=== PATIENT | male | born 1940 | race Caucasian/White ===

== ENCOUNTER 2021-06-15 19:58 | Observation (INO) | payer MEDICARE ==
--- NOTE | 2021-06-15 20:33 | EDM.PDOC ---
ED HPI GENERAL MEDICAL PROBLEM - General Chief Complaint: Head Injury Stated Complaint: FALL Time Seen by Provider: 06/15/21 20:20 Source of Information: Reports: Patient, RN Notes Reviewed History Limitations: Reports: No Limitations - History of Present Illness INITIAL COMMENTS - FREE TEXT/NARRATIVE: This patient presents to the emergency department for evaluation following a fall. He states he slipped in his kitchen and fell backwards landing on his posterior scalp about 3 hours prior to admission. He is complaining of some head pain and some right jaw pain. He also states he feels as though the jaw is dislocated. His pain increases significantly when he bites down. He states he had no loss of consciousness and is able to recount the details of his injury. He denies other injuries or concerns. - Related Data Allergies Allergy/AdvReac Type Severity Reaction Status Date / Time Sulfa (Sulfonamide AdvReac Diarrhea Verified 05/23/19 14:35 Antibiotics) Home Meds: Home Meds Aspirin [Aury Chewable Aspirin] 81 mg PO DAILY 05/15/14 [History] Clopidogrel Bisulfate [Clopidogrel] 75 mg PO DAILY 05/15/14 [History] Fluticasone Propion/Salmeterol [Advair 100-50 Diskus] 1 puff INH BID 05/15/14 [History] Lisinopril 5 mg PO DAILY 05/15/14 [History] Simvastatin 40 mg PO DAILY 05/15/14 [History] Tamsulosin HCl 0.4 mg PO DAILY 05/15/14 [History] Nitroglycerin 0.4 mg PO ASDIRECTED PRN 05/23/19 [History] [place]-3/DHA/Epa/Fish Oil [Fish Oil 1,000 mg Softgel] 1,000 mg PO DAILY 05/23/19 [History] Pantoprazole Sodium 40 mg PO DAILY 05/23/19 [History] ED ROS GENERAL - Review of Systems Review Of Systems: Comprehensive ROS is negative, except as noted in HPI. ED EXAM, HEAD INJURY - Physical Exam Exam: See Below Exam Limited By: No Limitations General Appearance: Alert, No Apparent Distress Head: Atraumatic, Other (TMJ on the right is tender with palpation, he does have full range of motion; joint feels intact.) Nexus Criteria: No: Posterior, Midline Cervical Tenderness, Evidence of Intoxication, Altered Level of Consciousness, Focal Neurological Deficit, Painful Distraction Injuries Eyes: Bilateral Eye: Normal Inspection, PERRL Ears: Normal External Exam Nose: Normal Inspection Throat/Mouth: Normal Inspection, Normal Teeth, Normal Oropharynx, No Airway Compromise Neck: Non-Tender, Full Range of Motion, Normal Inspection Respiratory: No Respiratory Distress, No Accessory Muscle Use Cardiovascular: Regular Rate, Rhythm Extremities: Normal Inspection, Normal Range of Motion Neurologic: No Motor/Sensory Deficits, Alert, Normal Mood/Affect, Oriented x 3 Skin: Normal Color, Warm/Dry, Ecchymosis (2 cm bruise to) - June Coma Score Best Eye Response ([place]): (4) Open Spontaneously Best Verbal Response ([place]): (5) Oriented Best Motor Response ([place]): (6) Obeys Commands Course - Orders/Labs/Meds Orders: Active Orders 24 hr Category Date Time Status Head wo Cont [CT] Stat Exams 06/15/21 20:23 Ordered Max Facial Sinus wo Cont [CT] Stat Exams 06/15/21 20:23 Ordered - Re-Assessments/Exams Free Text/Narrative Re-Assessment/Exam: 06/15/21 21:49 This patient presents to the emergency department for evaluation of jaw pain following a fall in his home. CT scan of his jaw was negative for acute findings and there is no malocclusion noted. He also had a head CT which was significant for small subdural hematoma along the anterior sagittal falx. There is no mass-effect or midline shift noted. I contacted Dr. Rader who is a neurosurgeon at [facility] to discuss these findings. He suggested that the location of this bleed and the size are such that it is on very unlikely to get any bigger. He suggested we admit the patient on observation status with a repeat CT scan in 24 hours. His Plavix and aspirin will be held. If his head CT is unchanged in 24 hours he can be discharged to home with instructions to follow-up with his primary care provider in 2 weeks for a another CT scan. At that time if the bleed is completely resolved he would be able to restart his Plavix and aspirin. If it is not, further waiting for the bleed to resolve would be required. I did discuss this plan with the patient and his son who are agreeable. The patient will be admitted to the acute care area on observation status. He will have frequent neuro checks during the night and through the day tomorrow with a repeat CT scan approximately 24 hours after the original injury. The patient was stable at the time he was transferred to the inpatient unit. Departure - Departure Time of Disposition: 22:00 Disposition: [facility] Condition: Good Clinical Impression: Subdural hematoma, Jaw pain - Discharge Information Forms: ED Department Discharge - My Orders Last 24 Hours: My Active Orders 06/15/21 20:23 Head wo Cont [CT] Stat Max Facial Sinus wo Cont [CT] Stat - Assessment/Plan Last 24 Hours: My Active Orders 06/15/21 20:23 Head wo Cont [CT] Stat Max Facial Sinus wo Cont [CT] Stat
[2021-06-15] MEDS ORDERED: Tamsulosin 0.4 MG Cap.ER PO ONE (22:20)
[2021-06-15] MEDS ORDERED: Nitroglycerin 0.4 MG Tab.SL SL PRN (22:22)
--- NOTE | 2021-06-15 22:28 | PCM.HP.2 ---
H&P History of Present Illness - General Date of Service: 06/15/21 Admit Problem/Dx: Admission Diagnosis/Problem Admission Diagnosis/Problem Subdural hematoma Source of Information: Patient, RN Notes Reviewed History Limitations: Reports: No Limitations - History of Present Illness Onset of Symptoms: Reports: Today, Sudden - Related Data Allergies/Adverse Reactions: Allergies Allergy/AdvReac Type Severity Reaction Status Date / Time Sulfa (Sulfonamide AdvReac Diarrhea Verified 06/15/21 21:49 Antibiotics) Home Medications: Home Meds Aspirin [Aury Chewable Aspirin] 81 mg PO DAILY 05/15/14 [History] Clopidogrel Bisulfate [Clopidogrel] 75 mg PO DAILY 05/15/14 [History] Fluticasone Propion/Salmeterol [Advair 100-50 Diskus] 1 puff INH BID 05/15/14 [History] Simvastatin 40 mg PO DAILY 05/15/14 [History] Tamsulosin HCl 0.4 mg PO DAILY 05/15/14 [History] Nitroglycerin 0.4 mg PO ASDIRECTED PRN 05/23/19 [History] [place]-3/DHA/Epa/Fish Oil [Fish Oil 1,000 mg Softgel] 1,000 mg PO DAILY 05/23/19 [History] Pantoprazole Sodium 40 mg PO DAILY 05/23/19 [History] Losartan [Cozaar] 25 mg PO DAILY 06/15/21 [History] Past Medical History - Infectious Disease History Infectious Disease History: Reports: Chicken Pox, Influenza, Measles, Mumps Social & Family History - Tobacco Use Tobacco Use Status *Q: Unknown Ever Used Tobacco H&P Review of Systems - Review of Systems: Review Of Systems: Comprehensive ROS is negative, except as noted in HPI. Exam - Exam Exam: See Below - Vital Signs Vital Signs: Last Vital Signs Temp 36.8 C 06/15/21 20:01 Pulse 59 L 06/15/21 20:01 Resp 18 06/15/21 20:01 BP 146/91 H 06/15/21 20:01 Pulse Ox 98 06/15/21 20:01 Weight: 145.15 kg - Exam General: Alert, Oriented HEENT: PERRLA, Conjunctiva Clear, EOMI, Hearing Intact, Mucosa Moist & [place], Nares Patent, Normal Nasal Septum, Posterior Pharynx Clear, Pupils Equal, Pupils Reactive Neck: Supple Lungs: Clear to Auscultation, Normal Respiratory Effort Cardiovascular: Regular Rate, Regular Rhythm Extremities: Normal Inspection Skin: Warm, Dry Neuro Extensive - Mental Status: Alert, Oriented x3, Normal Mood/Affect, Normal Cognition, Memory Intact Neuro Extensive - Motor, Sensory, Reflexes: Normal Gait. No: Motor/Sensory Deficits Psychiatric: Alert, Normal Affect, Normal Mood Sepsis Event Note - Evaluation Sepsis Screening Result: No Definite Risk - Focused Exam Vital Signs: Vital Signs Temp Pulse Resp BP Pulse Ox 06/15/21 20:01 36.8 C 59 L 18 146/91 H 98 - Problem List (1) Subdural hematoma SNOMED Code(s): 377628892 ICD Code: S06.5X9A - TRAUM SUBDR HEM W LOC OF UNSP DURATION, INIT Status: Acute Priority: High Current Visit: Yes Problem List Initiated/Reviewed/Updated: Yes Orders Last 24hrs: Active Orders 24 hr Category Date Time Status Patient Status Manage Transfer [TRANSFER] Routine ADT 06/15/21 22:12 Active RT Post Treatment Assessment [RC] Click to Edit Care 06/15/21 22:21 Active Head wo Cont [CT] Stat Exams 06/15/21 20:23 Taken Max Facial Sinus wo Cont [CT] Stat Exams 06/15/21 20:23 Taken Fluticasone Propionate [Flovent HFA 110 MCG] Med 06/16/21 08:00 Ordered 1 gm INH BID Losartan [Cozaar] Med 06/16/21 08:00 Ordered 25 mg PO DAILY Nitroglycerin [Nitrostat] Med 06/15/21 22:22 Ordered 0.4 mg SL Q5M PRN Pantoprazole [ProTONIX] Med 06/16/21 07:00 Ordered 40 mg PO ACBREAKFAST Simvastatin [Zocor] Med 06/16/21 20:00 Ordered 40 mg PO BEDTIME Tamsulosin [Flomax] Med 06/15/21 22:20 Once 0.4 mg PO ONETIME ONE Resuscitation Status Routine Resus Stat 06/15/21 22:13 Ordered Medication Orders Fluticasone Propionate (Fluticasone Propionate 110 Mcg/Puff 12 Gm Inhaler) 1 gm INH BID ENRIQUE Losartan Potassium (Losartan 25 Mg Tab) 25 mg PO DAILY ENRIQUE Nitroglycerin (Nitroglycerin 0.4 Mg Tab.Sl) 0.4 mg SL Q5M PRN PRN Reason: Chest Pain Pantoprazole Sodium (Pantoprazole 40 Mg Tab.Cr) 40 mg PO ACBREAKFAST ENRIQUE Simvastatin (Simvastatin 40 Mg Tab) 40 mg PO BEDTIME ENRIQUE Tamsulosin HCl (Tamsulosin 0.4 Mg Cap.Er) 0.4 mg PO ONETIME ONE Stop: 06/15/21 22:21 Assessment/Plan Comment:: Discontinue Plavix and ASA. Neuro checks every [address] 24 hours Other cares per order - Mortality Measure Prognosis:: Good
[2021-06-16] MEDS: Acetaminophen 500 MG Tab PO PRN ×2 (02:14→11:16)
[2021-06-16] MEDS ORDERED: Pantoprazole 40 MG Tab.CR PO SCH (07:00)
[2021-06-16] MEDS ORDERED: Losartan 25 MG Tab PO SCH (08:00)
--- NOTE | 2021-06-16 08:01 | CT ---
DATE OF SERVICE: 06/15/21 CLINICAL DATA: trauma UNENHANCED BRAIN CT: Multislice acquisition through the brain without IV contrast was performed. Comparison is made to a prior exam dated 09/05/07. There is diffuse cerebral atrophy. There are periventricular lucencies bilaterally consistent with small vessel ischemic change. There is blood density material adjacent to the anterior hemispheric falx anteriorly consistent with an acute subdural hematoma. No mass effect associated with this. No evidence of acute or subacute infarct. No osseous abnormalities. No fractures. IMPRESSION: Subdural hematoma adjacent to the interhemispheric falx anteriorly. No mass effect. The patient's physician was notified of the findings by telephone and by [facility] preliminary radiology report. [id number] [facility]
--- NOTE | 2021-06-16 08:06 | CT ---
DATE OF SERVICE: 06/15/21 CLINICAL DATA: trauma UNENHANCED FACIAL CT: Multislice axial acquisition was performed. Axial images and sagittal and coronal reformations are reviewed. There is mild mucosal thickening in the maxillary, ethmoid, sphenoid, and frontal sinuses consistent with chronic sinusitis. No air-fluid levels. The globes and orbital contents appear intact. No fractures. No other significant findings. [id number] [facility]
[2021-06-16] MEDS: Formoterol/Mometasone 100-5 MCG 8.8 GM Inhaler IH SCH ×2 (08:20→08:35)
[2021-06-16] MEDS ORDERED: Tamsulosin 0.4 MG Cap.ER PO SCH (10:00)
[2021-06-16 13:14] VITALS: BP 144/66; PULSE 58
--- NOTE | 2021-06-16 16:52 | PCM.DCSUM1 ---
Discharge Summary - Hospital Course Diagnosis: Stroke: No - Discharge Data Discharge Date: 06/16/21 Discharge Disposition: Home, Self-Care 01 Condition: Good - Referral to Home Health Primary Care Physician: PCP None - Discharge Diagnosis/Problem(s) (1) Subdural hematoma SNOMED Code(s): 205206085 ICD Code: S06.5X9A - TRAUM SUBDR HEM W LOC OF UNSP DURATION, INIT Status: Acute Priority: High Current Visit: Yes - Patient Instructions Diet: Usual Diet as Tolerated Driving: May Drive Today Showering/Bathing: May Shower - Discharge Plan *PRESCRIPTION DRUG MONITORING PROGRAM REVIEWED*: Not Applicable *COPY OF PRESCRIPTION DRUG MONITORING REPORT IN PATIENT LEXI: Not Applicable Home Medications: Home Meds Fluticasone Propion/Salmeterol [Advair 100-50 Diskus] 1 puff INH BID 05/15/14 [History] Simvastatin 40 mg PO DAILY 05/15/14 [History] Tamsulosin HCl 0.4 mg PO DAILY 05/15/14 [History] Nitroglycerin 0.4 mg PO ASDIRECTED PRN 05/23/19 [History] [place]-3/DHA/Epa/Fish Oil [Fish Oil 1,000 mg Softgel] 1,000 mg PO DAILY 05/23/19 [History] Pantoprazole Sodium 40 mg PO DAILY 05/23/19 [History] Losartan [Cozaar] 25 mg PO DAILY 06/15/21 [History] Forms: ED Department Discharge Referrals: PCP,None [Primary Care Provider] - - Discharge Summary/Plan Comment DC Time >30 min.: No (30) Total # of Minutes for Discharge Time: 30 - General Info Date of Service: 06/16/21 Admission Dx/Problem (Free Text: Admission Diagnosis/Problem Admission Diagnosis/Problem Subdural hematoma Functional Status: Reports: Pain Controlled, Tolerating Diet, Ambulating, Urinating - Review of Systems General: Reports: Appetite. Denies: Fever, Weakness HEENT: Reports: Glasses. Denies: Ear Pain, Eye Pain, Headaches, Post Nasal Drip, Rhinitis, Visual Changes Pulmonary: Reports: No Symptoms Cardiovascular: Reports: No Symptoms Gastrointestinal: Reports: No Symptoms Genitourinary: Reports: No Symptoms Musculoskeletal: Reports: No Symptoms Skin: Reports: No Symptoms Neurological: Reports: No Symptoms - Patient Data Vitals - Most Recent: Last Vital Signs Temp 36.4 C 06/16/21 07:34 Pulse 58 L 06/16/21 13:13 Resp 16 06/16/21 13:13 BP 144/66 H 06/16/21 13:13 Pulse Ox 96 06/16/21 13:13 Weight - Most Recent: 145.15 kg Lab Results - Last 24 hrs: Laboratory Results - last 24 hr 06/16/21 Range/Units Unknown SARS-CoV-2 RNA ([place]) Negative (NEGATIVE) Med Orders - Current: Current Medications Acetaminophen (Acetaminophen 500 Mg Tab) 1,000 mg PO Q6H PRN PRN Reason: Pain Last Admin: 06/16/21 11:16 Dose: 1,000 mg Documented by: Losartan Potassium (Losartan 25 Mg Tab) 25 mg PO DAILY [facility] Last Admin: 06/16/21 08:20 Dose: 25 mg Documented by: Mometasone Furoate/Formoterol Fumar (Formoterol/Mometasone 100-5 Mcg 8.8 Gm Inhaler) 0 puff IH BID [facility] Last Admin: 06/16/21 08:35 Dose: Not Given Documented by: Nitroglycerin (Nitroglycerin 0.4 Mg Tab.Sl) 0.4 mg SL Q5M PRN PRN Reason: Chest Pain Pantoprazole Sodium (Pantoprazole 40 Mg Tab.Cr) 40 mg PO ACBREAKFAST [facility] Last Admin: 06/16/21 06:14 Dose: 40 mg Documented by: Simvastatin (Simvastatin 40 Mg Tab) 40 mg PO BEDTIME ENRIQUE Tamsulosin HCl (Tamsulosin 0.4 Mg Cap.Er) 0.4 mg PO PCBREAKFAST [facility] Last Admin: 06/16/21 11:15 Dose: 0.4 mg Documented by: Discontinued Medications Tamsulosin HCl (Tamsulosin 0.4 Mg Cap.Er) 0.4 mg PO ONETIME ONE Stop: 06/15/21 22:21 Last Admin: 06/15/21 23:36 Dose: Not Given Documented by: - Exam General: Reports: Alert, Oriented, Cooperative HEENT: Reports: Pupils Equal, Pupils Reactive, EOMI, Mucous Membr. Moist/[place] Neck: Reports: Supple Lungs: Reports: Clear to Auscultation, Normal Respiratory Effort Cardiovascular: Reports: Regular Rate, Regular Rhythm Skin: Reports: Warm, Dry, Ecchymosis (Posterior scalp approximately 2 cm in diameter.) Neurological: Reports: No New Focal Deficit
[2021-06-16] MEDS ORDERED: Simvastatin 40 MG Tab PO SCH (20:00)
--- NOTE | 2021-06-16 22:07 | CT ---
CLINICAL DATA: Trauma. UNENHANCED BRAIN CT, 2020: Multislice axial acquisition was performed. Comparison is made to a prior exam dated 15 June 2021. A small subdural hematoma adjacent to the interhemispheric falx anteriorly is again seen. It is unchanged from the prior study. The remainder of the exam is also unchanged. No new abnormalities. Job: [id number] MTDD
== END 2021-06-16 16:50 | disposition home or self-care (01) ==
LOC: LB.ED 19:58 → LB.MS 21:45 → UNDOADMOB 21:45 → LB.MS 22:12
PROVIDERS: ADMIT Nurse Practitioner; ATTEND Nurse Practitioner
DX: S06.5X9A Traumatic subdural hemorrhage with loss of consciousness of unspecified duration, initial encounter (principal); Z20.822 Contact with and (suspected) exposure to COVID-19; Z79.82 Long term (current) use of aspirin; Z88.2 Allergy status to sulfonamides; Z79.899 Other long term (current) drug therapy; W19.XXXA Unspecified fall, initial encounter
CPT/HCPCS: 70450; 70486; 99284-25; A9270-GY; G0378; U0002

== ENCOUNTER 2022-05-15 09:26 | Emergency (ER) | payer MEDICARE ==
[2022-05-15 09:54] VITALS: BP 169/71; PULSE 75
[2022-05-15] MEDS ORDERED: Albuterol/Ipratropium 3.0-0.5 MG/3 ML Neb Soln ONE (10:56)
== END 2022-05-15 11:20 | disposition home or self-care (01) ==
LOC: LB.ED 09:26
DX: J45.901 Unspecified asthma with (acute) exacerbation (principal); Z88.2 Allergy status to sulfonamides; Z79.899 Other long term (current) drug therapy; Z20.822 Contact with and (suspected) exposure to COVID-19
CPT/HCPCS: 99282; 99284; U0002; J7620

== ENCOUNTER 2023-02-15 10:18 | Day surgery (SDC) | payer MEDICARE ==
[~2023-02-15 10:18] MED LIST: Metoclopramide 10 MG/2 ML SDV IV PRN; Sodium Chloride 0.9% 1,000 ML IV SCH
[2023-02-15 13:19] VITALS: BP 137/79; PULSE 58
== END 2023-02-15 13:45 | disposition home or self-care (01) ==
LOC: LB.SDS 10:18
PROVIDERS: ATTEND Surgery
DX: Z12.11 Encounter for screening for malignant neoplasm of colon (principal); K57.30 Diverticulosis of large intestine without perforation or abscess without bleeding; K21.9 Gastro-esophageal reflux disease without esophagitis; I25.10 Atherosclerotic heart disease of native coronary artery without angina pectoris; J45.909 Unspecified asthma, uncomplicated; M54.50 Low back pain, unspecified; G89.29 Other chronic pain; I10 Essential (primary) hypertension; M53.9 Dorsopathy, unspecified; I25.2 Old myocardial infarction; R73.09 Other abnormal glucose; G47.9 Sleep disorder, unspecified; Z86.010 Personal history of colon polyps; Z88.2 Allergy status to sulfonamides; Z79.82 Long term (current) use of aspirin; Z79.02 Long term (current) use of antithrombotics/antiplatelets; Z79.899 Other long term (current) drug therapy; Z87.891 Personal history of nicotine dependence
CPT/HCPCS: G0105; J2704; J7030

== ENCOUNTER 2023-03-20 10:28 | Emergency (ER) | payer MEDICARE ==
[2023-03-20] MEDS: Ketorolac 60 MG/2 ML SDV IM ONE (11:46)
[2023-03-20] MEDS: methylPREDNISolone Sodium Succinate 125 MG/2 ML SDV IM ONE (11:47)
[2023-03-20 11:56] VITALS: BP 137/76; PULSE 97
[2023-03-21] MEDS: methylPREDNISolone Sodium Succinate 125 MG/2 ML SDV ONE (09:25)
[2023-03-21] MEDS: Ketorolac 60 MG/2 ML SDV ONE (09:25)
== END 2023-03-20 12:53 | disposition home or self-care (01) ==
LOC: LB.ED 10:28
DX: M16.0 Bilateral primary osteoarthritis of hip (principal); I25.10 Atherosclerotic heart disease of native coronary artery without angina pectoris; E78.00 Pure hypercholesterolemia, unspecified; I10 Essential (primary) hypertension; Z88.2 Allergy status to sulfonamides; Z79.899 Other long term (current) drug therapy; Z79.82 Long term (current) use of aspirin
CPT/HCPCS: 73502-LT; 96372; 99283; J1885; J2930

== ENCOUNTER 2023-07-29 09:37 | Inpatient (IN) | payer MEDICARE ==
[2023-07-29] MEDS ORDERED: Albuterol/Ipratropium 3.0-0.5 MG/3 ML Neb Soln NEB ONE (09:51)
[2023-07-29] MEDS ORDERED: Budesonide 0.5 MG/2 ML Neb Susp NEB ONE (09:54)
[2023-07-29] MEDS ORDERED: Budesonide 0.5 MG/2 ML Neb Susp ONE (10:00)
[2023-07-29 10:43] LABS: BASOPHILS ABSOLUTE AUTO 0.06 K/uL (0.02-0.10); BASOPHILS PERCENT AUTO 0.6 % (0.0-0.5); EOSINOPHILS ABSOLUTE AUTO 0.35 K/uL (0.04-0.40); EOSINOPHILS PERCENT AUTO 3.7 % (1.0-5.0); HEMATOCRIT 41.2 % (40.0-54.0); HEMOGLOBIN 13.8 g/dL (13.0-18.0); LYMPHOCYTES ABSOLUTE AUTO 1.56 K/uL (1.50-4.00); LYMPHOCYTES PERCENT AUTO 16.4 % (20.0-40.0); MEAN CORPUSCULAR HEMOGLOBIN 27.1 pg (27.0-32.0); MEAN CORPUSCULAR HGB CONC 33.5 g/dL (31.0-35.0); MEAN CORPUSCULAR VOLUME 81 fL (76-96); MEAN PLATELET VOLUME 9.9 fL (6.0-10.0); MONOCYTES ABSOLUTE AUTO 0.55 K/uL (0.20-0.80); MONOCYTES PERCENT AUTO 5.8 % (3.0-10.0); NEUTROPHILS PERCENT AUTO 73.5 % (45.0-70.0); PLATELET COUNT,PLT 230 K/uL (150-400); RED CELL DISTRIBUTION WIDTH 15.5 % (11.0-16.0); WHITE BLOOD CELL COUNT,WBC 9.5 K/uL (4.0-11.0)
[2023-07-29] MEDS ORDERED: methylPREDNISolone Sodium Succinate 125 MG/2 ML SDV IM ONE (10:48)
[2023-07-29 10:49] LABS: PH,VENOUS 7.43 (7.31-7.41)
[2023-07-29 10:50] LABS: BASE EXCESS VENOUS -0.2 mm/L (-2-3); BICARBONATE,VENOUS 24.1 mmol/L (23.0-28.0); PCO2 VENOUS 36.3 mm/Hg (41-51)
[2023-07-29] MEDS ORDERED: methylPREDNISolone Sodium Succinate 125 MG/2 ML SDV ONE ×2 (10:51→10:55)
[2023-07-29 11:17] LABS: A/G RATIO 0.9 (0.8-2.0); ALBUMIN 3.3 g/dL (3.4-5.0); ANION GAP 13.3 mmol/L (5.0-15.0); BILIRUBIN TOTAL 0.9 mg/dL (0.0-1.0); BUN/CREATININE RATIO 8.3 (6-25); CALCIUM 9.1 mg/dL (8.5-10.1); CARBON DIOXIDE,CO2 24.8 mmol/L (21.0-32.0); CREATININE 0.96 mg/dL (0.70-1.30); EST CRCL DRUG DOSING (CG) 64.73 mL/min; POTASSIUM,K 4.1 mmol/L (3.5-5.1); PROTEIN TOTAL,TP 7.1 g/dL (6.4-8.2)
[2023-07-29] MEDS ORDERED: Nitroglycerin 0.4 MG Tab.SL SL PRN (12:05)
[2023-07-29] MEDS: Albuterol/Ipratropium 3.0-0.5 MG/3 ML Neb Soln NEB SCH ×3 (13:48→23:58)
[2023-07-29] MEDS ORDERED: Albuterol/Ipratropium 3.0-0.5 MG/3 ML Neb Soln ONE (13:50)
[2023-07-29 14:51] LABS: INFLUENZA A NAA NEGATIVE (NEGATIVE); INFLUENZA B NAA NEGATIVE (NEGATIVE)
[2023-07-29 14:52] LABS: CORONAVIRUS COVID-19 NAA NEGATIVE (NEGATIVE)
[2023-07-30] MEDS: Albuterol/Ipratropium 3.0-0.5 MG/3 ML Neb Soln NEB SCH ×3 (05:56→17:50)
[2023-07-30 08:00] LABS: BASOPHILS ABSOLUTE AUTO 0.03 K/uL (0.02-0.10); BASOPHILS PERCENT AUTO 0.2 % (0.0-0.5); EOSINOPHILS ABSOLUTE AUTO 0.01 K/uL (0.04-0.40); EOSINOPHILS PERCENT AUTO 0.1 % (1.0-5.0); HEMATOCRIT 38.3 % (40.0-54.0); LYMPHOCYTES ABSOLUTE AUTO 1.12 K/uL (1.50-4.00); LYMPHOCYTES PERCENT AUTO 8.1 % (20.0-40.0); MEAN CORPUSCULAR HEMOGLOBIN 27.1 pg (27.0-32.0); MEAN CORPUSCULAR HGB CONC 33.9 g/dL (31.0-35.0); MEAN CORPUSCULAR VOLUME 80 fL (76-96); MEAN PLATELET VOLUME 9.9 fL (6.0-10.0); MONOCYTES ABSOLUTE AUTO 0.64 K/uL (0.20-0.80); MONOCYTES PERCENT AUTO 4.6 % (3.0-10.0); PLATELET COUNT,PLT 249 K/uL (150-400); WHITE BLOOD CELL COUNT,WBC 13.9 K/uL (4.0-11.0)
[2023-07-30] MEDS ORDERED: Tamsulosin 0.4 MG Cap.ER PO SCH (08:00)
[2023-07-30] MEDS ORDERED: Pantoprazole 40 MG Tab.CR PO SCH (08:00)
[2023-07-30] MEDS ORDERED: Clopidogrel 75 MG Tab PO SCH (08:00)
[2023-07-30] MEDS ORDERED: Levofloxacin 750 MG Tab PO SCH (08:00)
[2023-07-30] MEDS ORDERED: Simvastatin 40 MG Tab PO SCH (08:00)
[2023-07-30] MEDS ORDERED: Losartan 25 MG Tab PO SCH (08:00)
[2023-07-30] MEDS ORDERED: Furosemide 40 MG Tab PO SCH (08:00)
[2023-07-30] MEDS: Furosemide 40 MG Tab **OWN MED PO SCH (08:01)
[2023-07-30] MEDS: Simvastatin 40 MG Tab **OWN MED PO SCH (08:02)
[2023-07-30] MEDS: Pantoprazole 40 MG Tab.CR **OWN MED PO SCH (08:02)
[2023-07-30] MEDS: Losartan 25 MG Tab **OWN MED PO SCH (08:02)
[2023-07-30] MEDS: Tamsulosin 0.4 MG Cap.ER **OWN MED PO SCH (08:02)
[2023-07-30] MEDS: Clopidogrel 75 MG Tab **OWN MED PO SCH (08:02)
[2023-07-30] MEDS: predniSONE 20 MG Tab PO SCH (08:03)
[2023-07-30] MEDS: Aspirin 81 MG Tab.Chew PO SCH (08:03)
[2023-07-30 08:30] LABS: BUN/CREATININE RATIO 11.9 (6-25); CALCIUM 9.4 mg/dL (8.5-10.1); CARBON DIOXIDE,CO2 26.3 mmol/L (21.0-32.0); CREATININE 0.84 mg/dL (0.70-1.30); EST CRCL DRUG DOSING (CG) 73.98 mL/min; POTASSIUM,K 4.1 mmol/L (3.5-5.1)
[2023-07-30 08:36] LABS: ANION GAP 8.8 mmol/L (5.0-15.0)
[2023-07-30] MEDS ORDERED: Albuterol 0.083% 2.5 MG/3 ML Neb Soln ONE (10:07)
[2023-07-30] MEDS: Albuterol 0.083% 2.5 MG/3 ML Neb Soln NEB PRN ×2 (10:10→15:16)
[2023-07-30] MEDS: Budesonide 0.5 MG/2 ML Neb Susp NEB SCH (19:50)
[2023-07-31] MEDS: Albuterol/Ipratropium 3.0-0.5 MG/3 ML Neb Soln NEB SCH ×4 (00:07→17:38)
[2023-07-31] MEDS: Budesonide 0.5 MG/2 ML Neb Susp NEB SCH ×2 (07:51→19:05)
[2023-07-31] MEDS: predniSONE 20 MG Tab PO SCH (07:51)
[2023-07-31] MEDS: Aspirin 81 MG Tab.Chew PO SCH (07:52)
[2023-07-31] MEDS: Tamsulosin 0.4 MG Cap.ER **OWN MED PO SCH (07:54)
[2023-07-31] MEDS: Pantoprazole 40 MG Tab.CR **OWN MED PO SCH (07:54)
[2023-07-31] MEDS: Losartan 25 MG Tab **OWN MED PO SCH (07:55)
[2023-07-31] MEDS: Furosemide 40 MG Tab **OWN MED PO SCH (07:55)
[2023-07-31] MEDS: Clopidogrel 75 MG Tab **OWN MED PO SCH (07:55)
[2023-07-31] MEDS: Simvastatin 40 MG Tab **OWN MED PO SCH (07:56)
[2023-07-31 07:58] LABS: BASOPHILS ABSOLUTE AUTO 0.04 K/uL (0.02-0.10); BASOPHILS PERCENT AUTO 0.3 % (0.0-0.5); EOSINOPHILS PERCENT AUTO 0.8 % (1.0-5.0); HEMATOCRIT 40.8 % (40.0-54.0); HEMOGLOBIN 13.5 g/dL (13.0-18.0); LYMPHOCYTES ABSOLUTE AUTO 1.86 K/uL (1.50-4.00); MEAN CORPUSCULAR HEMOGLOBIN 26.8 pg (27.0-32.0); MEAN CORPUSCULAR HGB CONC 33.1 g/dL (31.0-35.0); MEAN CORPUSCULAR VOLUME 81 fL (76-96); MONOCYTES ABSOLUTE AUTO 0.81 K/uL (0.20-0.80); MONOCYTES PERCENT AUTO 6.5 % (3.0-10.0); NEUTROPHILS ABSOLUTE AUTO 9.57 K/uL (2.00-7.50); NEUTROPHILS PERCENT AUTO 77.4 % (45.0-70.0); PLATELET COUNT,PLT 244 K/uL (150-400); RED BLOOD CELL COUNT 5.03 M/uL (4.50-6.50); RED CELL DISTRIBUTION WIDTH 15.3 % (11.0-16.0); WHITE BLOOD CELL COUNT,WBC 12.4 K/uL (4.0-11.0)
[2023-07-31 08:13] LABS: ANION GAP 12.6 mmol/L (5.0-15.0); CALCIUM 9.5 mg/dL (8.5-10.1); CARBON DIOXIDE,CO2 26.3 mmol/L (21.0-32.0); CREATININE 0.8 mg/dL (0.70-1.30); EST CRCL DRUG DOSING (CG) 77.68 mL/min; POTASSIUM,K 3.9 mmol/L (3.5-5.1)
[2023-07-31] MEDS: guaiFENesin 600 MG Tab.ER PO SCH ×2 (10:03→19:05)
[2023-08-01] MEDS: Albuterol 0.083% 2.5 MG/3 ML Neb Soln NEB PRN ×2 (00:20→04:21)
[2023-08-01] MEDS: Albuterol/Ipratropium 3.0-0.5 MG/3 ML Neb Soln NEB SCH ×3 (00:22→12:30)
[2023-08-01] MEDS ORDERED: Pantoprazole 40 MG Tab.CR PO SCH (07:00)
[2023-08-01] MEDS: predniSONE 20 MG Tab PO SCH (07:20)
[2023-08-01] MEDS: guaiFENesin 600 MG Tab.ER PO SCH (07:21)
[2023-08-01] MEDS: Aspirin 81 MG Tab.Chew PO SCH (07:21)
[2023-08-01] MEDS: Budesonide 0.5 MG/2 ML Neb Susp NEB SCH (07:22)
[2023-08-01] MEDS ORDERED: Simvastatin 40 MG Tab PO SCH (08:00)
[2023-08-01] MEDS ORDERED: Clopidogrel 75 MG Tab PO SCH (08:00)
[2023-08-01] MEDS ORDERED: Losartan 25 MG Tab PO SCH (08:00)
[2023-08-01] MEDS ORDERED: Furosemide 40 MG Tab PO SCH (08:00)
[2023-08-01] MEDS ORDERED: Tamsulosin 0.4 MG Cap.ER PO SCH (08:00)
[2023-08-01 09:45] LABS: BASOPHILS ABSOLUTE AUTO 0.04 K/uL (0.02-0.10); BASOPHILS PERCENT AUTO 0.3 % (0.0-0.5); EOSINOPHILS ABSOLUTE AUTO 0.08 K/uL (0.04-0.40); EOSINOPHILS PERCENT AUTO 0.7 % (1.0-5.0); HEMOGLOBIN 13.4 g/dL (13.0-18.0); LYMPHOCYTES ABSOLUTE AUTO 1.15 K/uL (1.50-4.00); LYMPHOCYTES PERCENT AUTO 9.9 % (20.0-40.0); MEAN CORPUSCULAR HEMOGLOBIN 26.6 pg (27.0-32.0); MEAN CORPUSCULAR HGB CONC 32.7 g/dL (31.0-35.0); MEAN CORPUSCULAR VOLUME 82 fL (76-96); MEAN PLATELET VOLUME 9.9 fL (6.0-10.0); MONOCYTES ABSOLUTE AUTO 0.63 K/uL (0.20-0.80); MONOCYTES PERCENT AUTO 5.4 % (3.0-10.0); NEUTROPHILS ABSOLUTE AUTO 9.77 K/uL (2.00-7.50); NEUTROPHILS PERCENT AUTO 83.7 % (45.0-70.0); PLATELET COUNT,PLT 272 K/uL (150-400); RED BLOOD CELL COUNT 5.03 M/uL (4.50-6.50); RED CELL DISTRIBUTION WIDTH 15.4 % (11.0-16.0); WHITE BLOOD CELL COUNT,WBC 11.7 K/uL (4.0-11.0)
[2023-08-01 10:03] LABS: A/G RATIO 0.9 (0.8-2.0); ANION GAP 10.2 mmol/L (5.0-15.0); BILIRUBIN TOTAL 0.4 mg/dL (0.0-1.0); BUN/CREATININE RATIO 13.3 (6-25); CALCIUM 8.8 mg/dL (8.5-10.1); CARBON DIOXIDE,CO2 31.7 mmol/L (21.0-32.0); CREATININE 0.98 mg/dL (0.70-1.30); EST CRCL DRUG DOSING (CG) 63.41 mL/min; MAGNESIUM 1.9 mg/dL (1.8-2.4); POTASSIUM,K 3.9 mmol/L (3.5-5.1); PROTEIN TOTAL,TP 6.5 g/dL (6.4-8.2)
[2023-08-01 15:43] VITALS: BP 152/82; PULSE 88
== END 2023-08-01 15:30 | disposition home or self-care (01) | DRG 189 ==
LOC: LB.ED 09:37 → LB.MS 12:54 → UNDOADMOB 12:54 → INTOOBSV 14:55 → OBSVTOIN 14:55 → LB.MS 07-31 14:55 → OBSVTOIN 07-31 14:55
PROVIDERS: ADMIT Physician Assistant; ATTEND Physician Assistant
DX: J96.01 Acute respiratory failure with hypoxia (principal); E87.1 Hypo-osmolality and hyponatremia; E87.3 Alkalosis; J44.9 Chronic obstructive pulmonary disease, unspecified; I25.10 Atherosclerotic heart disease of native coronary artery without angina pectoris; I10 Essential (primary) hypertension; G47.33 Obstructive sleep apnea (adult) (pediatric); E78.00 Pure hypercholesterolemia, unspecified; G89.29 Other chronic pain; M54.9 Dorsalgia, unspecified; Z11.52 Encounter for screening for COVID-19; Z88.2 Allergy status to sulfonamides
CPT/HCPCS: 0240U; 36415; 71045; 80048; 80053; 82803; 83605; 83735; 83880; 84484; 85025; 93005; 94640; 96372; 99222; 99232; 99238; 99285; A9270-GY; G0378; J2930; J7512; J7620

== ENCOUNTER 2023-08-03 21:24 | Emergency (ER) | payer MEDICARE ==
[2023-08-03 22:20] VITALS: BP 112/60; PULSE 64
[2023-08-03 22:27] LABS: BASOPHILS ABSOLUTE AUTO 0.03 K/uL (0.02-0.10); BASOPHILS PERCENT AUTO 0.2 % (0.0-0.5); EOSINOPHILS ABSOLUTE AUTO 0.11 K/uL (0.04-0.40); EOSINOPHILS PERCENT AUTO 0.8 % (1.0-5.0); HEMATOCRIT 39.9 % (40.0-54.0); HEMOGLOBIN 13.2 g/dL (13.0-18.0); LYMPHOCYTES ABSOLUTE AUTO 2.53 K/uL (1.50-4.00); LYMPHOCYTES PERCENT AUTO 18.5 % (20.0-40.0); MEAN CORPUSCULAR HEMOGLOBIN 26.7 pg (27.0-32.0); MEAN CORPUSCULAR HGB CONC 33.1 g/dL (31.0-35.0); MEAN CORPUSCULAR VOLUME 81 fL (76-96); MONOCYTES ABSOLUTE AUTO 0.97 K/uL (0.20-0.80); MONOCYTES PERCENT AUTO 7.1 % (3.0-10.0); NEUTROPHILS ABSOLUTE AUTO 10.05 K/uL (2.00-7.50); NEUTROPHILS PERCENT AUTO 73.4 % (45.0-70.0); PLATELET COUNT,PLT 303 K/uL (150-400); RED BLOOD CELL COUNT 4.94 M/uL (4.50-6.50); RED CELL DISTRIBUTION WIDTH 15.4 % (11.0-16.0); WHITE BLOOD CELL COUNT,WBC 13.7 K/uL (4.0-11.0)
[2023-08-03 22:46] LABS: ALANINE AMINOTRANSFERASE,ALT 59 U/L (12-78); ALBUMIN 3.1 g/dL (3.4-5.0); ALKALINE PHOSPHATASE 69 U/L (46-116); ANION GAP 9.9 mmol/L (5.0-15.0); ASPARTATE AMNIOTRANSFERASE,AST 26 U/L (15-37); BILIRUBIN TOTAL 0.5 mg/dL (0.0-1.0); BLOOD UREA NITROGEN,BUN 21 mg/dL (8-26); BUN/CREATININE RATIO 17.5 (6-25); CALCIUM 8.8 mg/dL (8.5-10.1); CHLORIDE,CL 97 mmol/L (98-107); ESTIMATED GFR 60 mL/min (>60); GLUCOSE RANDOM 149 mg/dL (74-100); MAGNESIUM 2.2 mg/dL (1.8-2.4); POTASSIUM,K 3.9 mmol/L (3.5-5.1); PROTEIN TOTAL,TP 6.3 g/dL (6.4-8.2); SODIUM,NA 134 mmol/L (136-145)
== END 2023-08-04 01:04 | disposition home or self-care (01) ==
LOC: LB.ED 21:24
DX: R07.89 Other chest pain (principal); I25.10 Atherosclerotic heart disease of native coronary artery without angina pectoris; I10 Essential (primary) hypertension; E78.00 Pure hypercholesterolemia, unspecified; Z88.2 Allergy status to sulfonamides; Z79.82 Long term (current) use of aspirin; Z79.899 Other long term (current) drug therapy; Z79.02 Long term (current) use of antithrombotics/antiplatelets; Z87.891 Personal history of nicotine dependence
CPT/HCPCS: 36415; 71045; 80053; 83735; 84484; 85025; 99285

== ENCOUNTER 2023-12-27 07:44 | Day surgery (SDC) | payer MEDICARE ==
[~2023-12-27 07:44] MED LIST changes: +Lactated Ringers 1,000 ML IV SCH; -Metoclopramide 10 MG/2 ML SDV IV PRN; +Morphine 2 MG/ML SYRINGE IVPUSH PRN; +Ondansetron 4 MG/2 ML SDV IVPUSH PRN; -Sodium Chloride 0.9% 1,000 ML IV SCH
[2023-12-27] MEDS: Lactated Ringers 1,000 ML IV SCH (08:08)
[2023-12-27] MEDS: ceFAZolin 1 GM Vial IV ONE (09:12)
[2023-12-27] MEDS ORDERED: Propofol 200 MG/20 ML SDV ONE (10:45)
[2023-12-27] MEDS ORDERED: fentaNYL 100 MCG/2 ML SDV ONE (10:45)
[2023-12-27] MEDS ORDERED: Midazolam 1 MG/ML 2 ML SDV ONE (10:45)
[2023-12-27] MEDS ORDERED: Glycopyrrolate 0.2 MG/ML 2 ML SDV ONE (10:45)
[2023-12-27] MEDS ORDERED: Lidocaine 1% 30 ML SDV ONE (10:45)
[2023-12-27 11:24] VITALS: BP 122/58; PULSE 55
[2023-12-27] MEDS: Acetaminophen/HYDROcodone 325-5 MG Tab PO PRN (11:27)
== END 2023-12-27 13:20 | disposition home or self-care (01) ==
LOC: LB.SDS 07:44
PROVIDERS: ATTEND Surgery
DX: K42.9 Umbilical hernia without obstruction or gangrene (principal); E78.5 Hyperlipidemia, unspecified; Z88.0 Allergy status to penicillin
CPT/HCPCS: A9270-GY; C1781; J0690; J2250; J2704; J3010; J3490; J7120

== ENCOUNTER 2024-03-28 12:21 | Emergency (ER) | payer MEDICARE ==
[2024-03-28] MEDS ORDERED: Sodium Chloride 0.9% 10 ML Syringe FLUSH PRN (12:31)
[2024-03-28 12:37] LABS: BASOPHILS ABSOLUTE AUTO 0.04 K/uL (0.02-0.10); BASOPHILS PERCENT AUTO 0.5 % (0.0-0.5); EOSINOPHILS ABSOLUTE AUTO 0.33 K/uL (0.04-0.40); HEMATOCRIT 38.5 % (40.0-54.0); HEMOGLOBIN 12.8 g/dL (13.0-18.0); LYMPHOCYTES ABSOLUTE AUTO 1.92 K/uL (1.50-4.00); LYMPHOCYTES PERCENT AUTO 23.4 % (20.0-40.0); MEAN CORPUSCULAR HEMOGLOBIN 27.1 pg (27.0-32.0); MEAN CORPUSCULAR HGB CONC 33.2 g/dL (31.0-35.0); MEAN CORPUSCULAR VOLUME 81 fL (76-96); MEAN PLATELET VOLUME 11.2 fL (6.0-10.0); MONOCYTES ABSOLUTE AUTO 0.51 K/uL (0.20-0.80); MONOCYTES PERCENT AUTO 6.2 % (3.0-10.0); NEUTROPHILS ABSOLUTE AUTO 5.41 K/uL (2.00-7.50); NEUTROPHILS PERCENT AUTO 65.9 % (45.0-70.0); PLATELET COUNT,PLT 246 K/uL (150-400); RED BLOOD CELL COUNT 4.73 M/uL (4.50-6.50); WHITE BLOOD CELL COUNT,WBC 8.2 K/uL (4.0-11.0)
[2024-03-28 12:53] LABS: ALBUMIN 3.1 g/dL (3.4-5.0); ANION GAP 14.4 mmol/L (5.0-15.0); BILIRUBIN TOTAL 0.5 mg/dL (0.0-1.0); BUN/CREATININE RATIO 14.6 (6-25); CALCIUM 8.3 mg/dL (8.5-10.1); CARBON DIOXIDE,CO2 25.4 mmol/L (21.0-32.0); CREATININE 1.03 mg/dL (0.70-1.30); EST CRCL DRUG DOSING (CG) 57.55 mL/min; POTASSIUM,K 3.8 mmol/L (3.5-5.1); PROTEIN TOTAL,TP 6.1 g/dL (6.4-8.2); TROPONIN I HIGH SENSITIVITY 5.4 pg/ml (<=60.4)
[2024-03-28 13:39] VITALS: BP 132/60; PULSE 58
[2024-03-28] MEDS: Iopamidol 612 MG/ML 100 ML Bottle IV SCH (14:09)
[2024-03-28] MEDS: Sodium Chloride 0.9% 30 ML IV ONE (14:09)
[2024-03-28] MEDS: Sodium Chloride 0.9% 10 ML Syringe FLUSH ONE (14:09)
== END 2024-03-28 15:10 | disposition home or self-care (01) ==
LOC: LB.ED 12:21
DX: R10.12 Left upper quadrant pain (principal); I25.10 Atherosclerotic heart disease of native coronary artery without angina pectoris; I25.2 Old myocardial infarction; Z79.02 Long term (current) use of antithrombotics/antiplatelets; Z79.82 Long term (current) use of aspirin; Z79.51 Long term (current) use of inhaled steroids; Z79.899 Other long term (current) drug therapy; Z88.2 Allergy status to sulfonamides
CPT/HCPCS: 36415; 74177; 80053; 83880; 84484; 85025; 85379; 93005; 99285; J3490; Q9967; 99284

== ENCOUNTER 2024-05-30 16:48 | Emergency (ER) | payer MEDICARE ==
[2024-05-30] MEDS: Ketorolac 30 MG/ML SDV IM ONE (17:30)
[2024-05-30 17:31] LABS: ANION GAP 13.6 mmol/L (5.0-15.0); BUN/CREATININE RATIO 16.4 (6-25); CALCIUM 8.5 mg/dL (8.5-10.1); CARBON DIOXIDE,CO2 25.5 mmol/L (21.0-32.0); CREATININE 1.16 mg/dL (0.70-1.30); EST CRCL DRUG DOSING (CG) 51.1 mL/min; POTASSIUM,K 4.1 mmol/L (3.5-5.1)
[2024-05-30 18:19] VITALS: BP 117/63; PULSE 78
[2024-06-02] MEDS: Ketorolac 30 MG/ML SDV ONE (09:23)
== END 2024-05-30 18:16 | disposition home or self-care (01) ==
LOC: LB.ED 16:48
DX: S86.112A Strain of other muscle(s) and tendon(s) of posterior muscle group at lower leg level, left leg, initial encounter (principal); I11.0 Hypertensive heart disease with heart failure; I50.9 Heart failure, unspecified; I25.10 Atherosclerotic heart disease of native coronary artery without angina pectoris; E78.00 Pure hypercholesterolemia, unspecified; E11.9 Type 2 diabetes mellitus without complications; Z79.899 Other long term (current) drug therapy; Z79.82 Long term (current) use of aspirin; Z79.2 Long term (current) use of antibiotics; Z88.2 Allergy status to sulfonamides; X58.XXXA Exposure to other specified factors, initial encounter
CPT/HCPCS: 36415; 80048; 85379; 96372; 99283; J1885

== ENCOUNTER 2024-09-26 12:51 | Emergency (ER) | payer MEDICARE ==
[2024-09-26 13:32] VITALS: BP 128/83; PULSE 81
== END 2024-09-26 13:51 | disposition home or self-care (01) ==
LOC: LB.ED 12:51
DX: S09.90XA Unspecified injury of head, initial encounter (principal); I25.10 Atherosclerotic heart disease of native coronary artery without angina pectoris; I25.2 Old myocardial infarction; I11.0 Hypertensive heart disease with heart failure; I50.9 Heart failure, unspecified; E78.00 Pure hypercholesterolemia, unspecified; J45.909 Unspecified asthma, uncomplicated; E11.9 Type 2 diabetes mellitus without complications; Z86.73 Personal history of transient ischemic attack (TIA), and cerebral infarction without residual deficits; Z88.2 Allergy status to sulfonamides; Z79.51 Long term (current) use of inhaled steroids; Z79.52 Long term (current) use of systemic steroids; Z79.82 Long term (current) use of aspirin; Z79.899 Other long term (current) drug therapy; W00.0XXA Fall on same level due to ice and snow, initial encounter
CPT/HCPCS: 70450; 99283

== ENCOUNTER 2025-03-24 11:57 | Emergency (ER) | payer MEDICARE ==
[2025-03-24 14:27] VITALS: BP 135/81; PULSE 90
== END 2025-03-24 13:20 | disposition home or self-care (01) ==
LOC: LB.ED 11:57
DX: S09.90XA Unspecified injury of head, initial encounter (principal); I11.0 Hypertensive heart disease with heart failure; I50.9 Heart failure, unspecified; E78.00 Pure hypercholesterolemia, unspecified; I25.10 Atherosclerotic heart disease of native coronary artery without angina pectoris; E66.9 Obesity, unspecified; Z79.899 Other long term (current) drug therapy; Z79.82 Long term (current) use of aspirin; Z88.2 Allergy status to sulfonamides; V86.55XA Driver of 3- or 4- wheeled all-terrain vehicle (ATV) injured in nontraffic accident, initial encounter
CPT/HCPCS: 70450; 99283

== ENCOUNTER 2025-05-27 16:24 | Emergency (ER) | payer MEDICARE ==
[2025-05-27] MEDS ORDERED: Sodium Chloride 0.9% 10 ML Syringe FLUSH PRN (17:00)
[2025-05-27 17:07] LABS: BASOPHILS ABSOLUTE AUTO 0.03 K/uL (0.02-0.10); BASOPHILS PERCENT AUTO 0.2 % (0.0-0.5); EOSINOPHILS ABSOLUTE AUTO 0.05 K/uL (0.04-0.40); EOSINOPHILS PERCENT AUTO 0.4 % (1.0-5.0); LYMPHOCYTES ABSOLUTE AUTO 1.84 K/uL (1.50-4.00); LYMPHOCYTES PERCENT AUTO 15.1 % (20.0-40.0); MEAN PLATELET VOLUME 10.3 fL (6.0-10.0); MONOCYTES ABSOLUTE AUTO 0.68 K/uL (0.20-0.80); MONOCYTES PERCENT AUTO 5.6 % (3.0-10.0); NEUTROPHILS ABSOLUTE AUTO 9.55 K/uL (2.00-7.50); NEUTROPHILS PERCENT AUTO 78.7 % (45.0-70.0); PLATELET COUNT,PLT 265 K/uL (150-400); RED BLOOD CELL COUNT 4.66 M/uL (4.50-6.50); RED CELL DISTRIBUTION WIDTH 13.7 % (11.0-16.0); WHITE BLOOD CELL COUNT,WBC 12.2 K/uL (4.0-11.0)
[2025-05-27 17:18] LABS: INR 1.0 (1.0-3.5); PTT,PARTIAL THROMBOPLSTIN TIME 23.2 SECONDS (24.4-33.2)
[2025-05-27 17:25] LABS: A/G RATIO 1.1 (0.8-2.0); ALANINE AMINOTRANSFERASE,ALT 36.0 U/L (12-78); ASPARTATE AMNIOTRANSFERASE,AST 12.0 U/L (15-37); BILIRUBIN TOTAL 0.5 mg/dL (0.0-1.0); BLOOD UREA NITROGEN,BUN 15.0 mg/dL (8-26); CARBON DIOXIDE,CO2 27.0 mmol/L (21.0-32.0); CHLORIDE,CL 99.0 mmol/L (98-107); CREATININE 0.98 mg/dL (0.70-1.30); EST CRCL DRUG DOSING (CG) 57.63 mL/min; ESTIMATED GFR 75.0 mL/min (>60); GLUCOSE RANDOM 154.0 mg/dL (74-100); POTASSIUM,K 4.0 mmol/L (3.5-5.1); PRO B-TYPE NATRIUR PEPT,BNPPRO 104.0 pg/mL (0-450); PROTEIN TOTAL,TP 5.7 g/dL (6.4-8.2); SODIUM,NA 134.0 mmol/L (136-145); TROPONIN I HIGH SENSITIVITY 7.2 pg/ml (<=60.4)
[2025-05-27] MEDS: Iopamidol 755 Mg/ML 100 ML Bottle IV SCH (18:19)
[2025-05-27] MEDS: Sodium Chloride 0.9% 50 ML SDV FLUSH ONE (18:19)
[2025-05-27 18:23] VITALS: PULSE 53
[2025-05-27 23:06] VITALS: BP 168/86
== END 2025-05-27 20:57 | disposition home or self-care (01) ==
LOC: LB.ED 16:24
DX: I95.9 Hypotension, unspecified (principal); I25.10 Atherosclerotic heart disease of native coronary artery without angina pectoris; E78.00 Pure hypercholesterolemia, unspecified; I11.0 Hypertensive heart disease with heart failure; I50.9 Heart failure, unspecified; I25.2 Old myocardial infarction; Z86.73 Personal history of transient ischemic attack (TIA), and cerebral infarction without residual deficits; Z88.2 Allergy status to sulfonamides; Z79.899 Other long term (current) drug therapy; Z79.82 Long term (current) use of aspirin; Z79.02 Long term (current) use of antithrombotics/antiplatelets
CPT/HCPCS: 36415; 71045; 71260; 80053; 83735; 83880; 84484; 85025; 85379; 85610; 85730; 93005; 93010; 96360; 99284; 99285-25; J7040; Q9967